=== PATIENT | male | born 1975 | race Hispanic/Latino ===

== ENCOUNTER 2021-04-29 06:35 | Day surgery (SDC) | payer OTHER ==
[2021-04-25 10:35] LABS: BASOPHILS % (AUTO) 1.5 % (0.0-5.0); EOSINOPHILS % (AUTO) 2.3 % (0.0-8.0); HEMATOCRIT 41.3 % (42-54); LYMPHOCYTES % (AUTO) 27.4 % (21.0-51.0); MEAN CORPUSCULAR HEMOGLOBIN 30.9 pg (27.0-33.0); MEAN CORPUSCULAR HGB CONC 33.2 g/dL (32.0-36.0); MONOCYTES % (AUTO) 12.8 % (3.0-13.0); NEUTROPHILS % (AUTO) 55.8 % (40.0-77.0); PLATELET COUNT (AUTO) 194 K/uL (130-400); RED BLOOD CELL COUNT(AUTO) 4.44 MIL/uL (4.50-6.20); RED CELL DISTRIBUTION WIDTH 13.5 % (11.0-15.5); WHITE BLOOD COUNT (AUTO) 4.7 K/uL (4.8-10.8)
[2021-04-25 10:44] LABS: CREATININE 0.9 mg/dL (0.5-1.5); POTASSIUM 3.8 mmol/L (3.5-5.1)
[2021-04-25 11:29] VITALS: BP 138/91
[2021-04-29] VITALS (18 sets, daily range): BP systolic 12–159; BP diastolic 61–95
[~2021-04-29] VITALS: Ht 170.2 cm; Wt 88.4 kg
[2021-04-29] MEDS: CEFAZOLIN SODIUM 1 GM VIAL IVP SCH ×2 (06:00→08:30)
[~2021-04-29 06:35] MED LIST: DICL75TA5 PO; METH-812 PO; OLOP2.5D16 OU
[2021-04-29] MEDS ORDERED: LACTATED RINGERS 1000ML 1,000 ML IV ONE (06:49)
[2021-04-29] MEDS ORDERED: FENTANYL CITRATE PF 50 MCG/1 ML 2ML VIAL ONE (07:59)
[2021-04-29] MEDS ORDERED: LIDOCAINE PF 100MG/5ML (2%) SYRINGE 5ML ONE (07:59)
[2021-04-29] MEDS ORDERED: PROPOFOL 10 MG/ML 20ML VIAL IV ONE (07:59)
[2021-04-29] MEDS ORDERED: MEPERIDINE-PF 25 MG/ML SYG ONE ×3 (08:50→09:37)
[2021-04-29] MEDS ORDERED: ONDANSETRON HCL 4 MG/2 ML VIAL ONE (09:04)
[2021-04-29] MEDS ORDERED: KETOROLAC 30MG VIAL (30MG/ML) ONE (09:04)
[2021-04-29] MEDS ORDERED: ACET1TAB25 PO (09:08)
[2021-04-29] MEDS ORDERED: CEPH500B PO (09:08)
== END 2021-04-29 10:50 | disposition home or self-care (01) ==
LOC: DAH 06:35
PROVIDERS: ATTEND Orthopaedic Surgery
DX: S83.242A Other tear of medial meniscus, current injury, left knee, initial encounter (principal); Z20.822 Contact with and (suspected) exposure to COVID-19; M71.22 Synovial cyst of popliteal space [Baker], left knee; M94.262 Chondromalacia, left knee; M19.90 Unspecified osteoarthritis, unspecified site; E78.5 Hyperlipidemia, unspecified; G47.33 Obstructive sleep apnea (adult) (pediatric); E78.00 Pure hypercholesterolemia, unspecified; Z98.890 Other specified postprocedural states; Z79.899 Other long term (current) drug therapy; X58.XXXA Exposure to other specified factors, initial encounter; Y93.89 Activity, other specified; Y92.89 Other specified places as the place of occurrence of the external cause
CPT/HCPCS: 29881; 36415; 80048; 85025; 87635; A4215; A4221; A4222; A4223; A4606; A4649 ×2; A4663; A4930 ×3; A5120; A6223; C9803; J0690; J1885; J2001; J2175 ×3; J2405; J2704; J3010; J7120